=== PATIENT | female | born 1995 | race Caucasian/White ===

== ENCOUNTER → 2017-11-04 | Outpatient (CLI) | payer MEDICAID, OTHER, SELFPAY ==
[2017-11-06 11:26] LABS: RUBELLA IgG QUALITATIVE IMMUNE (IMMUNE)
[2017-11-07 08:44] LABS: RUBEOLA IgG ANTIBODY >300.0 AU/mL (Immune >29.9)
[2017-11-07 08:44] LABS: MUMPS VIRUS IgG ANTIBODY >300.0 AU/mL (Immune >10.9)
== END ==
LOC: M WUC 13:13
DX: Z02.1 Encounter for pre-employment examination (principal)
CPT/HCPCS: 86762